=== PATIENT | female | born 1950 | race Caucasian/White ===

== ENCOUNTER 2024-10-23 13:16 | Outpatient (AMB) | payer MEDICAID, SELFPAY ==
--- NOTE | 2024-10-23 13:23 | MHC.PC.OV ---
Vital Signs 10/23/24 13:24 Height 5 ft 0.5 in Weight 191 lb 12.8 oz BMI 36.8 BP 118/72 Blood Pressure Location Lt brachial Position Sitting Respiration 20 Pulse 70 Pulse Source Pulse Oximeter Temp 98.6 F Temp Source Oral Pulse Oximetry (%) 95 Oxygen Delivery Method Room Air Intake Visit Reasons: establish care Intake Note: Patient is a new patient here to establish care. Transferring care from [facility]. Medical records have not been requested and have not been received. Quality Control Manager Required: Yes Quality Control Manager Language: Bermudian Quality Control Manager Name: Used Tablet- Abbey [id number] Accompanied by: Daughter Allergies No Known Allergies Allergy (Verified 10/23/24 13:46) Medication List - Last Reconciled 10/23/24 by KEN Pope amlodipine 5 mg PO DAILY omeprazole 40 mg PO DAILY valsartan 80 mg PO DAILY Tobacco use date assessed: 10/23/24 Fall risk assessment: No Falls in past year Last assessed Fall Risk: 10/23/24 HPI establish care HPI Details Previous PCP: In [facility] Last visit: 2 years ago Last PE: same Specialist: cardilogist, GI, orthropedics OBGYN: n/a Past medical history: htn, Medications: omeprazole 40 mg, simvastatin 20 mg, valsartan 80 mg Family HX: n/a The patient is a 74-year-old female presenting with a requirement for a physical exam associated with a company health requirement and ongoing health concerns. 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 The patient moved from the [facility] 2 years ago; she had enough medications that she has been taking and had not seek medical assistance due to insurance constraints. Past medical history reveals essential hypertension controlled with amlodipine and valsartan. The Patient also uses simvastatin 20 mg prior but currently not taking his medication regularly. There is a noted increase in shortness of breath in recent years, which worsens with exertion, such as walking more than 20 to 30 minutes. Cardiac evaluations, including an echocardiogram and EKG, were last performed two years ago in [facility], pointing to potential cardiac causes over pulmonary ones. Reports a tendency of having bradycardia in the past. The patient was diagnosed with erosive gastritis around four years ago following a cholecystectomy, which has been managed with omeprazole due to persistent heartburn. She suffers from severe osteoarthritis in her left knee, diagnosed as stage three, with notable joint discomfort and reduced mobility; however, she has declined joint replacement surgery at this time. Diclofenac topical, glucosamine and collagen. The patient has a surgical history of right hip replacement from a decade ago. She adheres to standard medical care for her conditions but lacks recent screenings of a colonoscopy or mammogram. No DEXA scan was reported. [facility] Medical History (Updated 10/23/24 @ 23:57 by KEN Pope) FH: cholecystectomy Erosive gastritis CAD (coronary artery disease) Osteoarthritis HTN (hypertension) Surgical History History of right hip replacement Social History Household Members: [facility] Alcohol intake: never Patient Tobacco Use Status: Never used Tobacco e-Cigarette/Vaping Use: Never Used service: No Current occupational status: retired Questionnaire PHQ-9 Over the last 2 weeks, how often have you been bothered by any of the following problems? 1. Little interest or pleasure in doing things: not at all 2. Feeling down, depressed, or hopeless: not at all 3. Trouble falling or staying asleep, or sleeping too much: not at all 4. Feeling tired or having little energy: nearly every day 5. Poor appetite or overeating: several days 6. Feeling bad about yourself - or that you are a failure or have let yourself or your family down: not at all 7. Trouble concentrating on things, such as reading the newspaper or watching television: not at all 8. Moving or speaking so slowly that other people could have noticed. Or the opposite - being so fidgety or restless that you have been moving around a lot more than usual: not at all 9. Thoughts that you would be better off or of hurting yourself in some way: not at all Total score: 4 Depression Screening Interpretation: Positive Depression Screening Done: Yes 93764 - PHQ-9 Billing: Yes Source: Developed by Drs. David Welch, Marybel Orozco, Stuart Black and colleagues, with an educational raulito from [employer]. Thrive Questionnaire Date Thrive assessed: 10/23/24 I am a: Patient What is your living situation today?: I have a place to live, but I am worried about losing it in the future Within the past 12 months, did the food you bought not last and you didn't have the money to get more?: Never true Within the past 12 months, did you worry whether your food would run out before you got money to buy more?: Never true Do you have trouble paying for medicines?: I choose not to answer this question Do you have trouble getting transportation to medical appointments?: Yes Do you have trouble paying your heating and electricity bill?: No Do you have trouble taking care of your child, family member or friend?: No Do you have trouble with day-to-day activities such as bathing, preparing meals, shopping, managing finances, etc.?: Yes Are you currently unemployed and looking for a job?: No Are you interested in more education?: No Please select the resources that you would like help with: Transportation and Daily support Currently or been in a relationship where the following occur: No concerns reported THRIVE Score: 2 AUDIT C Alcohol Use Questionnaire (AUDIT-C) 1. How often do you have a drink containing alcohol?: Never 3. How often do you have six or more drinks on one occasion?: Never Total Score: 0 Score Reviewed/Action Taken: No CRYSTAL-7 AMB Questionnaire CRYSTAL-7 Feeling nervous, anxious, or on edge: 1 = Several days Not being able to stop or control worryin = Not at all Worrying too much about different things: 1 = Several days Trouble relaxin = Several days Being so restless that it is hard to sit still: 0 = Not at all Becoming easily annoyed or irritable: 1 = Several days Feeling afraid as if something awful might happen: 1 = Several days Total CRYSTAL-7 score (0-4 normal; 5-9 mild; 10-14 moderate; 15-21 severe): 5 Source: Developed by Drs. David Welch, Marybel Orozco, Stuart Black and colleagues, with an educational raulito from [employer] CRYSTAL-7 Assessment Billing CRYSTAL-7 Assessment Tool: CRYSTAL-7 Assessment 41921 Review of Systems Const Details: - Cardiac: Reports shortness of breath with exertion. - GI: Reports frequent heartburn and discomfort in the gastrointestinal tract. - Musculoskeletal: Reports joint pain, particularly in the left knee with limited range of motion. - Denies any other major systemic symptoms. Denies headache(s) Eyes Denies loss of vision ENT Denies vertigo, Denies dizziness, Denies headache(s) and Denies sore throat Card Denies chest pain, Denies leg edema, Denies lightheadedness and Reports dyspnea on exertion Resp Denies cough, Denies hemoptysis, Reports dyspnea on exertion and Denies wheezing GI Denies abdominal pain, Denies melena, Denies constipation, Reports heartburn (On and off), Denies diarrhea and Denies vomiting Denies urinary frequency, Denies dysuria and Denies urinary urgency Musc Reports arthralgias (Left knee), Reports joint swelling (Left knee), Denies numbness and Denies tingling Neuro Denies Abnormal speech present, Denies behavioral changes, Denies vertigo, Denies dizziness, Denies headache(s), Denies loss of vision, Denies memory loss, Denies numbness and Denies tingling Psych Denies anxiety, Denies behavioral changes, Denies depression, Denies memory loss and Denies panic attacks Bryan/Lymph Denies easy bleeding and Denies easy bruising Aller/Immun Denies wheezing Physical exam (Primary Care) Vital Signs: Last Vital Signs Temp 98.6 F 10/23/24 13:24 Pulse 70 10/23/24 13:24 Resp 20 10/23/24 13:24 BP 118/72 10/23/24 13:24 Pulse Ox 95 10/23/24 13:24 Oxygen Delivery Method Room Air 10/23/24 13:24 BMI result Body Mass Index 36.8 Tobacco/Smoking Status: Tobacco use Status Tobacco use date assessed 10/23/24 10/23/24 13:44 Patient Tobacco Use Status Never used Tobacco 10/23/24 13:44 e-Cigarette/Vaping Use Never Used 10/23/24 13:44 PHQ-9: PHQ-9 Score PHQ-9: Total score 4 10/23/24 23:24 Depression Screening Interpretation: Positive Thrive Assessment: Date of Thrive Assessment Date Thrive assessed 10/23/24 10/23/24 13:44 Currently or been in a relationship where the following occur: No concerns reported Const Other: - Cardiovascular- Tachycardia noted, indicated by patient history. - Musculoskeletal- Noted limited range of motion in the left knee without mention of tenderness or swelling. General: healthy appearing, no acute distress, alert and awake Nutritional Appearance: well nourished Orientation/consciousness: oriented to person, oriented to place and oriented to time HENMT Ears: TM's normal bilaterally General nose exam: Normal nasal mucous membranes and turbinates present Eyes Conjunctivae: conjunctivae normal Sclerae: sclerae normal Pupils: Equal, round and reactive pupils present Neck Neck: Yes no lymphadenopathy and Yes no JVD Thyroid: Thyroid normal Carotids: no bruits Resp Effort & Inspection: normal respiratory effort and not tachypneic Auscultation: no crackles, no rales, no rhonchi and no wheezes Cardio Rate: regular rate Rhythm: regular rhythm Heart sounds: no murmurs and normal S1 and S2 GI Palpation (GI): Soft to palpation, nontender, no hepatomegaly and no splenomegaly Auscultation: normal bowel sounds General: Yes no CVA tenderness Back/Spine/Pelvis Back: no CVA tenderness Skin General skin exam: no rashes or lesions noted and dry skin Neuro General: oriented to person, oriented to place and oriented to time Cranial nerves: Yes Equal, round and reactive pupils present Speech: No Abnormal speech present Gait exam (Neuro): Normal gait present Motor exam (neuro): no tremor noted Extrem Right upper extremity: full ROM Left upper extremity: full ROM Right lower extremity: full ROM; no edema Left lower extremity: full ROM and knee Details: tenderness Location: of the medial joint line and swelling; no edema Psych Mental Status: mental status grossly normal Speech and movement: Normal speech and movement present Affect: normal affect Attitude: cooperative Thought process: Normal thought process present Coding Level of Care Code New Pt Prev Care >65yr (19583) Diagnoses Hypertension, unspecified type I10 Hypertension type: unspecified Heart burn R12 Primary osteoarthritis of left knee M17.12 Laterality: left Osteoarthritis location: knee Osteoarthritis type: primary Coronary artery disease, unspecified vessel or lesion type, unspecified whether angina present, unspecified whether [place] or transplanted heart I25.10 Associated angina: unspecified whether angina present Coronary Disease-Associated Artery/Lesion type: unspecified vessel or lesion type [place] vs. transplanted heart: unspecified whether [place] or transplanted heart Bradycardia R00.1 Additional Codes CRYSTAL-7 Assessment Billing - CRYSTAL-7 Assessment Tool: CRYSTAL-7 Assessment 18749 ([id number]) PHQ-9 - 47619 - PHQ-9 Billing: Yes ([id number]) Time Spent (min) 47 Assessment & Plan Assessment & Plan (1) HTN (hypertension): Code(s): I10 - Essential (primary) hypertension Category: Medical Qualifiers: Hypertension type: unspecified Qualified Code(s): I10 - Essential (primary) hypertension (2) Heart burn: Code(s): R12 - Heartburn Category: Medical (3) Osteoarthritis: Code(s): M19.90 - Unspecified osteoarthritis, unspecified site Category: Medical Qualifiers: Laterality: left Osteoarthritis location: knee Osteoarthritis type: primary Qualified Code(s): M17.12 - Unilateral primary osteoarthritis, left knee (4) CAD (coronary artery disease): Code(s): I25.10 - Atherosclerotic heart disease of [place] coronary artery without angina pectoris Category: Medical Qualifiers: Associated angina: unspecified whether angina present Coronary Disease-Associated Artery/Lesion type: unspecified vessel or lesion type [place] vs. transplanted heart: unspecified whether [place] or transplanted heart Qualified Code(s): I25.10 - Atherosclerotic heart disease of [place] coronary artery without angina pectoris (5) Bradycardia: Code(s): R00.1 - Bradycardia, unspecified Category: Medical Plan The plan includes ordering an echocardiogram, EKG, and BNP for cardiac evaluation given the patient's worsening shortness of breath. I will refer her to a inspector assemblies and installations for a comprehensive assessment. The patient's medication regimen of amlodipine, valsartan, and omeprazole will continue, and lab work will include a lipid panel to consider statin therapy. The patient's joint concerns will be managed conservatively due to her current election against surgery for osteoarthritis. Regular follow-ups and lifestyle modifications are encouraged to monitor symptom progression and treatment effects. Patient was informed and verbally consented to the use of an ambient scribe for clinic note documentation during this visit. Orders: Orders Complete Blood Count Auto Diff 10/23/24 I10 - Essential (primary) hypertension, M19.90 - Unspecified osteoarthritis, unspecified site, R12 - Heartburn, Z00.00 - Encounter for general adult medical examination without abnormal findings Comprehensive [place]. Panel Fast 10/23/24 I10 - Essential (primary) hypertension, M19.90 - Unspecified osteoarthritis, unspecified site, R12 - Heartburn, Z00.00 - Encounter for general adult medical examination without abnormal findings Lipid Panel 10/23/24 I10 - Essential (primary) hypertension, M19.90 - Unspecified osteoarthritis, unspecified site, R12 - Heartburn, Z00.00 - Encounter for general adult medical examination without abnormal findings ECG 12 lead EKG 10/23/24 I10 - Essential (primary) hypertension, I25.10 - Atherosclerotic heart disease of [place] coronary artery without angina pectoris B Type Natriuretic Peptide 10/23/24 I10 - Essential (primary) hypertension, M19.90 - Unspecified osteoarthritis, unspecified site, R12 - Heartburn, Z00.00 - Encounter for general adult medical examination without abnormal findings Vitamin D 25-OH Total 10/23/24 I10 - Essential (primary) hypertension, M19.90 - Unspecified osteoarthritis, unspecified site, R12 - Heartburn, Z00.00 - Encounter for general adult medical examination without abnormal findings Glucose Fasting 10/23/24 I10 - Essential (primary) hypertension, M19.90 - Unspecified osteoarthritis, unspecified site, R12 - Heartburn, Z00.00 - Encounter for general adult medical examination without abnormal findings UA CC w/rflx Micro + Cult 10/23/24 I10 - Essential (primary) hypertension, M19.90 - Unspecified osteoarthritis, unspecified site, R12 - Heartburn, Z00.00 - Encounter for general adult medical examination without abnormal findings TSH reflex Free T4 10/23/24 I10 - Essential (primary) hypertension, M19.90 - Unspecified osteoarthritis, unspecified site, R12 - Heartburn, Z00.00 - Encounter for general adult medical examination without abnormal findings CA echo transthoracic complete 10/23/24 I10 - Essential (primary) hypertension, I25.10 - Atherosclerotic heart disease of [place] coronary artery without angina pectoris, R00.1 - Bradycardia, unspecified Referrals Cardiology Referral I10 - Essential (primary) hypertension, I25.10 - Atherosclerotic heart disease of [place] coronary artery without angina pectoris, R00.1 - Bradycardia, unspecified Medications: New amlodipine 5 mg PO DAILY 90 tabs 0RF I10 - Essential (primary) hypertension omeprazole 40 mg PO DAILY 90 caps 3RF amlodipine 5 mg PO DAILY 90 tabs 3RF I10 - Essential (primary) hypertension simvastatin 20 mg PO BEDTIME 30 tabs 2RF I25.10 - Atherosclerotic heart disease of [place] coronary artery without angina pectoris valsartan 80 mg PO DAILY 90 tabs 3RF I10 - Essential (primary) hypertension valsartan 80 mg PO DAILY 90 tabs 3RF I10 - Essential (primary) hypertension simvastatin 20 mg PO BEDTIME 30 tabs 2RF I25.10 - Atherosclerotic heart disease of [place] coronary artery without angina pectoris Patient Instructions: - Continue taking amlodipine, valsartan, and omeprazole as prescribed. - Schedule lab tests for echocardiogram, EKG, and a BNP test. - Refrain from any strenuous activities that may exacerbate joint pain. - Follow the current medication regimen for hypertension and gastritis. - Expect a call for an appointment from the inspector assemblies and installations for specialized evaluation. - Return for a follow-up visit in three months or sooner if experiencing worsened symptoms. - Bring any recent test results to the next appointment.
[2024-10-23 13:24] VITALS: BP 118/72; PULSE 70; RESP 20; TEMP 37; O2SAT 95; BMI 36.8
--- OUTSIDE RECORDS SUMMARY | 2024-10-23 15:44 | XMS_ITS | Clinical Summary ---
Author Organization [facility] Address [address] [place] [address] Care Team Providers Care Trade Marker Name Role Phone Unavailable Primary Care Provider Unavailabl e Source Comments PLEASE NOTE, if this patient is a minor, it may be UNLAWFUL to discuss sensitive information that is contained in these records (such as FAMILY PLANNING, MENTAL HEALTH or SUBSTANCE ABUSE) with the minor patient's parent or other person without the patient's specific authorization.[facility] Social History Tobacco Use Types Packs/Day Years Used Date Smoking Tobacco: Never Assessed Social Connections Answer Date Recorded Connectedness 0 03/15/2024 Financial Resource Strain Answer Date R ecorded Financial Resource Strain 0 2023 Stress Answer Date Recorded Stress 0 01/17/2024 Physical Activity Answer Date Recorded Physical Activity 0 01/17/2024 Food Insecurity Answer Date Recorded Food 0 03/29/2024 Transportation Needs Answer Date Record ed Transportation 0 01/17/2024 Housing Stability Answer Date Recorded Housing 0 01/17/2024 Safety and Environment Answer Date Mauricio rded Safety 0 01/17/2024 Utilities Answer Date Recorded Utilities 0 01/17/2024 Employment Answer Date Recorded Stress 0 03/15/2024 Comments Unknown Sex and Gender Information Value Date Recorded Sex Assigned at Not on file Legal Sex Female 7:03 AM PDT Gender Identity Not on file Sexual Orientation Not on file Plan of Treatment Health Maintenance Due Date Last Done Comments Hepatitis C Screening 1950 Tobacco Screening 1950 Hypertension Screening (#1) 1966 Imm-DTaP/Tdap/Td (1 - Tdap) 1967 Imm-Pneumococcal 65+ (1 of 1 - PCV) 1998 Imm-Zoster, Recombinant (1 of 2) 1998 Bone Density Screening 2013 Falls Prevention 2013 [id number] ( - season) 2024 Imm-Influenza (#1) 2024 Alcohol and Drug Screen 07/04/2024 Depression Annual Screen 07/04/2024 Insurance [place] MEDICAID
== END 2024-10-23 14:55 | disposition home or self-care (01) ==
LOC: HO.HMCH 13:16
DX: I10 Essential (primary) hypertension (principal); R12 Heartburn; M17.12 Unilateral primary osteoarthritis, left knee; I25.10 Atherosclerotic heart disease of native coronary artery without angina pectoris; R00.1 Bradycardia, unspecified

== ENCOUNTER → 2024-10-23 13:16 | Outpatient (BNVA) | payer MEDICAID, SELFPAY | DX: I10 Essential (primary) hypertension (principal); R12 Heartburn; M17.12 Unilateral primary osteoarthritis, left knee; I25.10 Atherosclerotic heart disease of native coronary artery without angina pectoris; R00.1 Bradycardia, unspecified; Z79.899 Other long term (current) drug therapy | CPT/HCPCS: 96127; 99202 ==

== ENCOUNTER → 2024-10-26 10:28 | Outpatient (REF) | payer MEDICAID, SELFPAY ==
[2024-10-26 10:48] LABS: MANUAL DIFF FLAG NO
--- OUTSIDE RECORDS SUMMARY | 2024-10-26 11:05 | XMS_ITS | Clinical Summary ---
Author Organization [facility] Address [address] [place] [address] Care Team Providers Care Assistant Sales Director Name Role Phone Unavailable Primary Care Provider [...] Bone Density Screening 2013 Falls Prevention 2013 [id number]-GERUR-39 ( - season) 2024 Imm-Influenza (#1) 2024 Alcohol and Drug Screen 07/04/2024 Depression Annual Screen 07/04/2024 Insurance [place] MEDICAID
--- NOTE | 2024-10-26 11:06 | ECG_ITS ---
Test Reason : HTN Blood Pressure : */* mmHG Vent. Rate : 57 BPM Atrial Rate : 57 BPM P-R Int : 142 ms QRS Dur : 90 ms QT Int : 460 ms P-R-T Axes : 64 -49 75 degrees QTcB Int : 447 ms Sinus bradycardia RSR' or QR pattern in V1 suggests right ventricular conduction delay Left anterior fascicular block Nonspecific T wave abnormality Abnormal ECG No previous ECGs available Referred By: Armond Pritchett Electronically Signed By: KOJO SUNG
[2024-10-26 11:32] LABS: Basophils Absolute Auto 0.1 X10*3/uL (0.0-0.2); Basophils Percent Auto 0.8 % (0-2); Eosinophils Absolute Auto 0.1 X10*3/uL (0.0-0.4); Hematocrit 43.1 % (37.0-47.0); Hemoglobin 14.6 g/dl (12.0-16.0); Imm Gran Abs Auto 0.02 X10*3/uL (0.00-0.03); Imm Gran Pct Auto 0.3 % (0.0-0.4); Lymphocytes Absolute Auto 2.5 X10*3/uL (1.2-4.9); Mean Corpuscular HGB Conc 33.9 g/dl (31.0-35.0); Mean Corpuscular Hemoglobin 29.1 pg (27.0-33.0); Mean Platelet Volume 10.3 fL (9.4-12.3); Monocytes Absolute Auto 0.6 X10*3/uL (0.1-1.2); Neutrophils Absolute Auto 4.6 x10*3/uL (2.0-8.3); Neutrophils Percent Auto 57.9 % (45-73); Platelet Count 291 X10*3/uL (160-400); Red Blood Count 5.01 X10*6/uL (4.20-5.50); Red Cell Distribution Width 13.2 % (11.0-16.0); White Blood Count 7.9 X10*3/uL (4.8-10.8)
[2024-10-26 11:47] LABS: B Type Natriuretic Peptide 62 pg/mL (<100)
[2024-10-26 12:01] LABS: Appearance Urine Cloudy; Color Urine Yellow; Glucose Urine UA Negative (Negative); Leukocyte Esterase Urine Moderate (2+) (Negative); Nitrite Urine Negative (Negative); Specific Gravity - Urine >= 1.030 (1.005-1.025); UMIC TRIGGER UACC YES; Urine Blood Trace (Negative); Urine Ketones Negative (Negative); Urine Protein 30 (1+) mg/dL (Neg-Trace)
[2024-10-26 12:13] LABS: Alanine Aminotransferase 20 U/L (0-31); Albumin Level 4.1 g/dL (3.5-5.0); Alkaline Phosphatase 84 U/L (39-117); Anion Gap 10 (12-20); Aspartate Amino Transferase 24 U/L (5-31); Bilirubin Total 0.6 mg/dL (0.0-1.0); Blood Urea Nitrogen 21 mg/dL (9-16); Calcium 9.3 mg/dL (8.4-10.2); Carbon Dioxide 27 mmol/L (22-29); Chloride 107 mmol/L (96-108); Cholesterol 245 mg/dL (<200); Estimated Glomerular Filt Rate > 60; Glucose Fasting 97 mg/dL (60-99); HDL Cholesterol 76 mg/dL (>40); LDL Cholesterol Calculated 157 mg/dL (<100); Potassium 4.3 mmol/L (3.3-5.1); Sodium 140 mmol/L (135-145); Total Protein 7.1 g/dL (6.5-8.0); Triglycerides 63 mg/dL (<150)
[2024-10-26 12:23] LABS: TSH reflex Free T4 0.42 uIU/mL (0.32-4.0); Vitamin D 25-OH Total 23.8 ng/mL (>30)
[2024-10-26 13:26] LABS: Bacteria Urine 2+ (None Seen); Hyaline Casts Urine 0-2 /LPF (0-2); RBC Urine 0-2 /HPF (0-2); Squamous Epithelial Cell Urine >20 /HPF (0-2); UACC Culture Trigger YES; WBC Clumps Urine Present; WBC Urine >50 /HPF (0-5)
== END ==
LOC: HO.CARD 10:28
DX: I25.10 Atherosclerotic heart disease of native coronary artery without angina pectoris (principal); I10 Essential (primary) hypertension; R12 Heartburn; M19.90 Unspecified osteoarthritis, unspecified site; Z00.00 Encounter for general adult medical examination without abnormal findings
CPT/HCPCS: 36415; 80053; 80061; 81001; 81003; 82306; 83880; 84443; 85025; 87086; 93005

== ENCOUNTER → 2024-10-26 11:06 | Outpatient (BNV) | payer MEDICAID, SELFPAY | PROVIDERS: Visit Provider Internal Medicine | DX: R00.1 Bradycardia, unspecified (principal); I44.4 Left anterior fascicular block | CPT/HCPCS: 93010 ==

== ENCOUNTER → 2024-11-29 15:00 | Outpatient (REF) | payer MEDICAID, SELFPAY ==
--- OUTSIDE RECORDS SUMMARY | 2024-11-29 15:03 | XMS_ITS | Clinical Summary ---
Author Organization [facility] Address [address] [place] [address] Care Team Providers Care Administrative Volunteer Name Role Phone Unavailable Primary Care Provider [...] Bone Density Screening 2013 Falls Prevention 2013 [id number]-40 ( - season) 2024 Imm-Influenza (#1) 2024 Alcohol and Drug Screen 07/04/2024 Depression Annual Screen 07/04/2024 Insurance [place] MEDICAID
--- NOTE | 2024-11-29 15:05 | CA_ITS ---
Transthoracic Echocardiogram Patient (Last, First, Middle): Lizbeth Morrow, Gender: Female Date of : 1950 Age: 74 Procedure Date: 11/29/2024 Procedure Type: Transthoracic Echocardiogram Location: OP Height: 154.94 cm Weight: 79.83 kg BSA: 1.79 m2 Heart Rate: bpm BP: 126 / 70 mmHg Sql Bi Developer: SNEHA Referring MD: Armond CORCORAN-C Apprentice Technician: Sreekanth Lutz MD Symptoms: I25.10 - Atherosclerotic heart disease of solomon coronary artery without... Study Quality: Fair ECG Rhythm: Sinus Conclusions: - 1. Normal LV ejection fraction of 65-70% with impaired relaxation filling pattern 2. Normal cardiac valvular Dopplers 3. Normal RV systolic pressure 4. No gross pericardial effusion Findings Left Ventricle Normal left ventricular size, thickness, and systolic function. The visually estimated ejection fraction is between 65-70%. Spectral Doppler is indicative of an impaired relaxation filling pattern. E/E prime ratio is between 8 and 15 consistent with indeterminate filling pressures. Right Ventricle Normal right ventricular cavity size and systolic function. Atria The left atrium is normal in size. There is no evidence of interatrial shunt. The right atrium was not well visualized. Aortic Valve Normal aortic valve structure and function. There is no aortic valve stenosis. There is no aortic valve regurgitation. Mitral Valve Normal mitral valve structure and function. There is trace mitral valve regurgitation. There is no mitral valve stenosis. Pulmonic Valve The pulmonic valve was not well visualized. Tricuspid Valve Likely normal tricuspid valve structure and function. There is mild tricuspid valve regurgitation. The right ventricular systolic pressure is normal. The right ventricular systolic pressure is 35 mmHg. Normal right atrial pressure. There is no evidence of pulmonary hypertension. Great Vessels All visible segments of the aorta are normal in size. The pulmonary artery was not well visualized. Venous The inferior vena cava is normal in size and collapses greater than 50% with inspiration. Pericardium/Pleural There is no evidence of pericardial effusion. Prior Study Comparison No prior study available for comparison. Measurements 2D Linear Measurements IVSd: 0.78 0.6-0.9/0.6-1.0 cm LVIDd: 4.92 3.9-5.3/4.2-5.9 cm LVIDd Index: 2.75 2.4-3.2/2.2-3.1 cm/m2 LVIDs: 2.65 2.0-3.6 cm LVPWd: 0.82 0.7-1.1 cm LA Diam: 4.60 2.7-3.8/3.0-4.0 cm LAIDs Index: 2.57 1.5-2.3 cm/m2 LV Mass: 164.13 67-162/88-224 g LV Mass Index: 91.69 43-95/49-115 g/m2 LVOT Diam: 1.90 3.0+(-)1.3 cm 2D Systolic Function EF 4C: 62.40 >55% EF 2C: 68.20 >55% EF BiP: 66.10 >55% Mitral Valve MV Pk E: 0.66 MV PK A: 0.74 MV Decel Time: 236.00 E/A: 0.90 E'Lateral: 4.79 E'Medial: 4.03 E/E' Med: 16.40 E/E' Lat: 13.80 PHT: 69.00 MVA PHT: 3.19 Decel [place]: 2.79 Aortic Valve AoV Pk Pro: 1.84 AoV Mn Pro: 1.30 AoV VTI: 0.41 AoV Pk Grad: 14.00 Aov Mn Grad: 7.00 PRESLEY Cont.VTI: 1.64 LVOT LVOT Pk Pro: 1.19 LVOT Mn Pro: 0.75 LVOT VTI: 0.24 LVOT Pk Grad: 6.00 LVOT Mn Grad: 3.00 LVOT Diam: 1.90 LVOT Area: 2.84 Diastolic Function MV Pk E: 0.66 MV Pk A: 0.74 E/A: 0.90 E'Medial: 4.03 E/E' Med: 16.40 E' Laterial: 4.79 E/E' Lat: 13.80 Right Ventricle TAPSE (mm): 27.20 TVS' Pro: 18.00 Tricuspid Valve TR Pk Pro: 2.84 TR Pk Grad: 32.00 RA Press: 3.00 RVSP: 35.00 Great Vessels Aorta Sinus of Valsalva: 2.62 2.0-3.[address] [place]: 2.31 1.7-3.4 cm Ao Asc: 3.20 2.1-3.4 cm Ao Arch: 2.80 Updated in Other Vendor System with Status of Final Sreekanth Lutz MD electronically signed on 11/29/2024 4:29:46 PM with status of Final
== END ==
LOC: HO.CARD 15:00
DX: I25.10 Atherosclerotic heart disease of native coronary artery without angina pectoris (principal); I10 Essential (primary) hypertension; R00.1 Bradycardia, unspecified
CPT/HCPCS: 93306

== ENCOUNTER → 2024-11-29 15:05 | Outpatient (BNV) | payer MEDICAID, SELFPAY | PROVIDERS: Visit Provider Internal Medicine Cardiovascular Disease | DX: I51.89 Other ill-defined heart diseases (principal); I36.1 Nonrheumatic tricuspid (valve) insufficiency | CPT/HCPCS: 93306 ==

== ENCOUNTER 2025-01-22 15:52 | Outpatient (AMB) | payer MEDICAID, SELFPAY ==
--- NOTE | 2025-01-22 15:56 | A.OFFPC_ITS ---
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 Required: No Accompanied by: Nephew or Niece Allergies No Known Allergies Allergy (Verified 01/22/25 16:30) Medication List - Last Reconciled 01/22/25 by KEN Pope amlodipine 5 mg PO DAILY omeprazole 40 mg PO DAILY simvastatin 20 mg PO BEDTIME valsartan 80 mg PO DAILY Tobacco use date assessed: 01/22/25 Fall risk assessment: No Falls in past year Last assessed Fall Risk: 01/22/25 Dental Screening Dental Screen Date: 01/22/25 HPI CAD/htn HPI Details The patient is a 74-year-old female presenting for follow up appointment for chronic conditions Patient reports that she has has been having lower back pain that radiates down her left leg Reports that the patient started a week ago, radiating down the leg and worsening with movement, but not with palpation. The patient has a history of hyperlipidemia, with elevated LDL cholesterol noted previously. A follow-up cholesterol test is planned. Vitamin D deficiency is also present, likely due to insufficient sunlight exposure, and supplementation is advised. left side of lower back with radiating down back. The pain started from last week. positive leg raise on the left side negative pain to the area witih palpation She denies chest pain, SOB, heart palpitation and dizziness. Denies abdominal pain/change in bowel habits. No urinary symptoms PFSH Medical History FH: cholecystectomy Erosive gastritis CAD (coronary artery disease) Osteoarthritis HTN (hypertension) Surgical History History of right hip replacement Social History Household Members: Family [facility]: [facility] Alcohol intake: never Patient Tobacco Use Status: Never used Tobacco e-Cigarette/Vaping Use: Never Used service: No Current occupational status: retired Questionnaire Thrive Questionnaire Date Thrive assessed: 01/22/25 I am a: Patient What is your living situation today?: I have a place to live, but I am worried about losing it in the future Within the past 12 months, did the food you bought not last and you didn't have the money to get more?: Never true Within the past 12 months, did you worry whether your food would run out before you got money to buy more?: Never true Do you have trouble paying for medicines?: I choose not to answer this question Do you have trouble getting transportation to medical appointments?: Yes Do you have trouble paying your heating and electricity bill?: No Do you have trouble taking care of your child, family member or friend?: No Do you have trouble with day-to-day activities such as bathing, preparing meals, shopping, managing finances, etc.?: Yes Are you currently unemployed and looking for a job?: No Are you interested in more education?: No Currently or been in a relationship where the following occur: No concerns reported THRIVE Score: 2 CRYSTAL-7 AMB Questionnaire CRYSTAL-7 Date CRYSTAL - 7 assessed: 01/22/25 Source: Developed by Drs. David Welch, Marybel Orozco, Stuart Black and colleagues, with an educational raulito from [employer]. Review of Systems Const Denies body aches, Denies chills, Denies fever(s), Denies headache(s) and Denies poor appetite Eyes Reports no additional complaints ENT Reports Normal hearing present, Denies dysphagia, Denies dizziness, Denies headache(s) and Denies odynophagia Card Denies chest pain, Denies syncope, Denies edema, Denies irregular heart rhythm, Denies lightheadedness and Denies dyspnea Resp Denies cough and Denies dyspnea GI Denies abdominal pain, Denies constipation, Denies dysphagia, Denies diarrhea, Denies nausea, Denies odynophagia and Denies vomiting Reports no additional complaints Musc Reports back pain, Reports arthralgias (left knee), Denies joint swelling and Reports radiating pain into limb (left leg) Skin/Breast Reports system reviewed and no additional complaints, except as documented Neuro Reports Normal hearing present, Denies dizziness, Denies syncope and Denies headache(s) Psych Reports no additional complaints Physical exam (Primary Care) Vital Signs: Last Vital Signs Pulse 67 01/22/25 15:57 BP 116/76 01/22/25 15:57 Pulse Ox 96 01/22/25 15:57 Oxygen Delivery Method Room Air 01/22/25 15:57 BMI result Body Mass Index 36.8 Tobacco/Smoking Status: Tobacco use Status Tobacco use date assessed 01/22/25 01/22/25 16:04 Patient Tobacco Use Status Never used Tobacco 01/22/25 16:04 e-Cigarette/Vaping Use Never Used 01/22/25 16:04 Thrive Assessment: Date of Thrive Assessment Date Thrive assessed 01/22/25 01/22/25 16:04 Currently or been in a relationship where the following occur: No concerns reported Const General: cooperative, healthy appearing, comfortable and no acute distress Orientation/consciousness: patient oriented x3 HENMT Head: Yes normocephalic Ears: hearing grossly normal bilaterally General nose exam: Normal external nose present Eyes General: appearance normal, both eyes and all related structures Conjunctivae: conjunctivae normal Neck Neck: Yes full ROM and Yes no lymphadenopathy Resp Effort & Inspection: normal respiratory effort Auscultation: clear to auscultation bilaterally, no crackles, no rales, no rhonchi and no wheezes Cardio Rate: regular rate Rhythm: regular rhythm General: Yes no CVA tenderness Back/Spine/Pelvis Back: no CVA tenderness Thoracic/Lumbar Spine: No thoracic spinal tenderness, No lumbar spinal tenderness and straight leg raise positive Skin General skin exam: no rashes or lesions noted Neuro General: patient oriented x3 Cranial nerves: Yes Normal hearing present Extrem General: Yes normal to inspection, Yes full ROM and No edema Right lower extremity: ROM limited and no edema Left lower extremity: knee Details: no tenderness and no swelling; abnormal ROM and no edema Psych Affect: normal affect Attitude: cooperative Insight: Good insight present (Psych) Judgement: Good judgement present (Psych) Results Reviewed Results Reviewed: Laboratory Tests 10/26/24 10/26/24 10:47 11:24 WBC 7.9 RBC 5.01 Hgb 14.6 Hct 43.1 MCV 86.0 MCH 29.1 MCHC 33.9 RDW 13.2 Plt Count 291 MPV 10.3 Immature Gran % (Auto) 0.3 Neut % (Auto) 57.9 Lymph % (Auto) 32.0 [place] % (Auto) 8.0 Eos % (Auto) 1.0 Baso % (Auto) 0.8 Lymph # (Auto) 2.5 [place] # (Auto) 0.6 Eos # (Auto) 0.1 Sodium 140 Potassium 4.3 Chloride 107 Carbon Dioxide 27 Anion Gap 10 L BUN 21 H Creatinine 0.61 Estimated GFR > 60 Fasting Glucose 97 Calcium 9.3 Total Bilirubin 0.6 AST 24 ALT 20 Alkaline Phosphatase 84 B-Natriuretic Peptide 62 Total Protein 7.1 Albumin 4.1 Triglycerides 63 Cholesterol 245 H LDL Cholesterol, Calc 157 H HDL Cholesterol 76 25-OH Vitamin D Total 23.8 L TSH 0.42 Urine Color Yellow Urine Appearance Cloudy Ur Specific [place] >= 1.030 H Urine Protein 30 (1+) H Urine Glucose (UA) Negative Urine Ketones Negative Urine Blood Trace Urine Nitrite Negative Ur Leukocyte Esterase Moderate (2+) H Urine RBC 0-2 Urine WBC >50 H Urine WBC Clumps Present Ur Squamous Epith Cells >20 Urine Bacteria 2+ Hyaline Casts 0-2 Coding Level of Care Code Est Pt Level 4 (22360) Diagnoses Hypertension, unspecified type I10 Hypertension type: unspecified Heart burn R12 Primary osteoarthritis of left knee M17.12 Osteoarthritis location: knee Osteoarthritis type: primary Laterality: left Coronary artery disease, unspecified vessel or lesion type, unspecified whether angina present, unspecified whether [place] or transplanted heart I25.10 Coronary Disease-Associated Artery/Lesion type: unspecified vessel or lesion type [place] vs. transplanted heart: unspecified whether [place] or transplanted heart Associated angina: unspecified whether angina present Bradycardia R00.1 Acute left-sided low back pain with left-sided sciatica M54.42 Chronicity: acute Back pain laterality: left Sciatica presence: with sciatica Sciatica laterality: sciatica of left side Pure hypercholesterolemia E78.00 Hyperlipidemia type: pure hypercholesterolemia Vitamin D deficiency E55.9 Time Spent (min) 41 Assessment & Plan Assessment & Plan (1) HTN (hypertension): Code(s): I10 - Essential (primary) hypertension Category: Medical Qualifiers: Hypertension type: unspecified Qualified Code(s): I10 - Essential (primary) hypertension Plan: Patient blood pressure is 116/76. Reinforced low-salt diet. Continue amlodipine 5 mg daily, valsartan 80 mg daily (2) Heart burn: Code(s): R12 - Heartburn Category: Medical Plan: Reinforced dietary restrictions Continue omeprazole 40 mg daily (3) Osteoarthritis: Code(s): M19.90 - Unspecified osteoarthritis, unspecified site Category: Medical Qualifiers: Osteoarthritis location: knee Osteoarthritis type: primary Laterality: left Qualified Code(s): M17.12 - Unilateral primary osteoarthritis, left knee Plan: Patient has a history of left knee arthritis that was recommended to be surgically repaired. The patient had declined surgery and has been using conservative measures a topical cream. The patient in office today with a new pain to her back and posterior left leg and reports that her knees not as bad today. We will continue to monitor (4) CAD (coronary artery disease): Code(s): I25.10 - Atherosclerotic heart disease of [place] coronary artery without angina pectoris Category: Medical Qualifiers: Coronary Disease-Associated Artery/Lesion type: unspecified vessel or lesion type [place] vs. transplanted heart: unspecified whether [place] or transplanted heart Associated angina: unspecified whether angina present Qualified Code(s): I25.10 - Atherosclerotic heart disease of [place] coronary artery without angina pectoris Plan: Patient has a history of CAD that was diagnosed in [facility]. An EKG was done that showed sinus bradycardia with left anterior fascicular block, nonspecific T-wave abnormalities. The patient had an echo done that showed normal left ventricle function an EF of 65-70%. Patient is stable in his not having any anginal symptoms. (5) Bradycardia: Code(s): R00.1 - Bradycardia, unspecified Category: Medical Plan: Patient reports a history of sinus bradycardia. This confirmed on EKG. She is asymptomatic with no chest pain. Though she has some sob with exertion that she has been dealing with. Her lungs are clear and she has no other respiratory symptoms. (6) Lower back pain: Code(s): M54.50 - Low back pain, unspecified Category: Medical Qualifiers: Chronicity: acute Back pain laterality: left Sciatica presence: with sciatica Sciatica laterality: sciatica of left side Qualified Code(s): M54.42 - Lumbago with sciatica, left side Plan: Patient comes in today with complaints of severe lower back pain mostly on the left side that radiates down posterior leg. +straight leg test. The patient was started on ibuprofen 800mg q8 hrs with a maximum of only 20 tabs. 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 Discussed about only taking the mediation when the pain is severe. The patient was also given a prednisone tapered to help with the inflammation. (7) HLD (hyperlipidemia): Code(s): E78.5 - Hyperlipidemia, unspecified Category: Medical Qualifiers: Hyperlipidemia type: pure hypercholesterolemia Qualified Code(s): E78.00 - Pure hypercholesterolemia, unspecified Plan: Total cholesterol 245, LDL 157, HDL 76 Reinforced low-cholesterol diet Continue simvastatin 20 mg at bedtime. The patient was off this medication for sometimes so I will hold off on making any changes and have the patient repeat lipid panel in 3 months (8) Vitamin D deficiency: Code(s): E55.9 - Vitamin D deficiency, unspecified Category: Medical Plan: Vitamin-D 23.8 below the normal level of greater than 30. Cholecalciferol 25 mcg daily ordered Orders: Orders Comprehensive Boyd. Panel Fast Today E78.5 - Hyperlipidemia, unspecified, I10 - Essential (primary) hypertension, I25.10 - Atherosclerotic heart disease of [place] coronary artery without angina pectoris Complete Blood Count Auto Diff Today E78.5 - Hyperlipidemia, unspecified, I10 - Essential (primary) hypertension, I25.10 - Atherosclerotic heart disease of [place] coronary artery without angina pectoris Lipid Panel Today E78.5 - Hyperlipidemia, unspecified, I10 - Essential (primary) hypertension, I25.10 - Atherosclerotic heart disease of [place] coronary artery without angina pectoris Medications: New ibuprofen 800 mg PO Q8H PRN 30 tabs 0RF pain prednisone see taper instructions take 4 tabs x 2 days, then 3 tabs x2, then 2 tabs x 2 days, then 1 tab x2 days =20 for 8 days. 10 mg PO DIRECTED 20 tabs 0RF cholecalciferol (vitamin D3) 25 mcg PO DAILY 90 caps 3RF ibuprofen 800 mg PO Q8H PRN 20 tabs 0RF pain Refilled valsartan 80 mg PO DAILY 90 tabs 3RF I10 - Essential (primary) hypertension amlodipine 5 mg PO DAILY 90 tabs 3RF I10 - Essential (primary) hypertension omeprazole 40 mg PO DAILY 90 caps 3RF simvastatin 20 mg PO BEDTIME 30 tabs 2RF I25.10 - Atherosclerotic heart disease of [place] coronary artery without angina pectoris
[2025-01-22 15:57] VITALS: BP 116/76; PULSE 67; RESP 16; O2SAT 96; BMI 36.8
--- OUTSIDE RECORDS SUMMARY | 2025-01-22 16:35 | XMS_ITS | Clinical Summary ---
Author Organization [facility] Address [address] [place] [address] Care Team Providers Care Recreational Counselor Name Role Phone Unavailable Primary Care Provider [...] 1966 Imm-DTaP/Tdap/Td (1 - Tdap) 1967 Imm-Pneumococcal 50+ (1 of 1 - PCV) 1998 Imm-Zoster, Recombinant (1 of 2) 1998 Bone Density Screening 2013 Falls Prevention 2013 Imm-RSV (adult) (1 - 1-dose 75+ series) 2023 Ivy-[id number] (1 - 2024- season) 2024 Alcohol and Drug Screen 07/04/2024 Depression Annual Screen 07/04/2024 Imm-Influenza (#1) 2025 Insurance [place] MEDICAID
== END 2025-01-22 16:54 | disposition home or self-care (01) ==
LOC: HO.HMCH 15:53
DX: I10 Essential (primary) hypertension (principal); R12 Heartburn; M17.12 Unilateral primary osteoarthritis, left knee; I25.10 Atherosclerotic heart disease of native coronary artery without angina pectoris; R00.1 Bradycardia, unspecified; M54.42 Lumbago with sciatica, left side; E78.00 Pure hypercholesterolemia, unspecified; E55.9 Vitamin D deficiency, unspecified

== ENCOUNTER → 2025-01-22 15:52 | Outpatient (BNVA) | payer MEDICAID, SELFPAY | DX: I10 Essential (primary) hypertension (principal); I25.10 Atherosclerotic heart disease of native coronary artery without angina pectoris; E78.5 Hyperlipidemia, unspecified; E55.9 Vitamin D deficiency, unspecified; R12 Heartburn; M17.12 Unilateral primary osteoarthritis, left knee; M54.42 Lumbago with sciatica, left side; R00.1 Bradycardia, unspecified; E78.00 Pure hypercholesterolemia, unspecified | CPT/HCPCS: 99212 ==

== ENCOUNTER 2025-07-01 13:38 | Outpatient (AMB) | payer MEDICAID, SELFPAY ==
--- NOTE | 2025-07-01 13:55 | A.OFFVIS_ITS ---
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 Inside Finisher Required: Yes Inside Finisher Services: Inside Finisher Offered & Declined Inside Finisher Name: daughter Accompanied by: Daughter Allergies No Known Allergies Allergy (Verified 01/22/25 16:30) Medication List - Last Reconciled 07/01/25 by TONO Zafar amlodipine 5 mg PO DAILY cholecalciferol (vitamin D3) 25 mcg PO DAILY ibuprofen 800 mg PO Q8H PRN omeprazole 40 mg PO DAILY prednisone 10 mg PO DIRECTED simvastatin 20 mg PO BEDTIME valsartan 80 mg PO DAILY HPI Comments Details: History of Present Illness The patient is a 74-year-old female presenting for a cardiology consultation for bradycardia and shortness of breath on exertion. She reports shortness of breath with activity, such as walking, which began approximately one year ago and has worsened recently, particularly with faster walking. She denies orthopnea, chest pain or leg swelling. The symptoms may have started after discontinuing hydrochlorothiazide upon her arrival from [facility] two years ago. The patient reports her typical resting pulse is 55-60 bpm. She denies palpitations, dizziness, syncope. Her medical history is significant for hypertension, which is well-controlled on amlodipine and valsartan, and hyperlipidemia, for which she takes simvastatin. She has no history of diabetes, heart problems, asthma, emphysema, or bronchitis. She does not smoke or consume alcohol. Her exercise consists of walking about 4,000 steps daily. There is no family history of heart problems. Daughter is present and assist with translation. Past Cardiac testing - Echocardiogram (11/29/2024): Ejection fraction 65-70%, impaired relaxation, and normal valve Dopplers. - EKG (10/26/2024): Sinus bradycardia with a rate of 57, incomplete right bundle branch block, and left anterior fascicular block. - EKG (today): Sinus rhythm with a rate of 67 premature atrial contractions (PACs), left anterior fascicular block, and cannot exclude prior anterolateral infarct. Results - Labs (10/26/2024): - Hematocrit: 43.1 - Creatinine: 0.61 - TSH: 0.42 PFSH Medical History FH: cholecystectomy Erosive gastritis CAD (coronary artery disease) Osteoarthritis HTN (hypertension) Surgical History History of right hip replacement Social History [facility]: [facility] Alcohol intake: never Patient Tobacco Use Status: Never used Tobacco e-Cigarette/Vaping Use: Never Used service: No Current occupational status: retired Review of Systems Const All systems reviewed & are unremarkable except as noted in HPI and below Denies chills, Denies fatigue, Denies fever(s), Denies frequent falls, Denies weakness, Denies weight gain and Denies weight loss ENT Denies dizziness Card Denies chest pain, Denies leg edema, Denies lightheadedness, Denies palpitations, Reports dyspnea, Reports dyspnea on exertion and Reports orthopnea Resp Denies cough, Reports dyspnea and Reports dyspnea on exertion GI Denies bloating and Denies change in bowel habits Musc Denies muscle weakness, Denies numbness and Denies tingling Neuro Denies dizziness, Denies frequent falls, Denies numbness, Denies tingling and Denies weakness Endo Denies fatigue and Denies palpitations Physical Exam Vital Signs: Last Vital Signs Pulse 67 07/01/25 13:59 BP 122/80 07/01/25 13:59 BMI result Body Mass Index 37.4 Const General: cooperative, healthy appearing, comfortable and no acute distress Orientation/consciousness: patient oriented x3 Neck Neck: Yes normal visual inspection Resp Effort & Inspection: normal respiratory effort Auscultation: clear to auscultation bilaterally, no rales, no rhonchi and no wheezes Cardio Rate: regular rate Rhythm: regular rhythm Heart sounds: S1 normal heart sound present, S2 normal heart sound present, no gallops, no murmurs and no rubs Neuro General: patient oriented x3 Extrem General: Yes normal to inspection and No no pedal edema Psych Appearance: grossly normal Mental Status: mental status grossly normal Speech and movement: Normal speech and movement present Office Procedures EKG Details: Today, read by me, sinus rhythm with PACs, left anterior fascicular block, anterior infarct can not be excluded, rate 67, QTC 416 milliseconds [id number], Complete Assessment & Plan Assessment & Plan (1) Shortness of breath on exertion: Code(s): R06.02 - Shortness of breath Category: Medical Plan: Newer in last year. Will check Exercise nuclear stress test to evaluate for ischemia. (2) Bradycardia: Code(s): R00.1 - Bradycardia, unspecified Category: Medical Plan: EKG today SR, PACs rate 67. Checking holter. (3) HTN (hypertension): Code(s): I10 - Essential (primary) hypertension Category: Medical Qualifiers: Hypertension type: unspecified Qualified Code(s): I10 - Essential (primary) hypertension Plan: BP goal < 130/80. Good at present. No Med changes made. (4) HLD (hyperlipidemia): Code(s): E78.5 - Hyperlipidemia, unspecified Category: Medical Qualifiers: Hyperlipidemia type: pure hypercholesterolemia Qualified Code(s): E78.00 - Pure hypercholesterolemia, unspecified Plan: LDL goal < 100. Followed by PCP, continue Simvastatin (5) PAC (premature atrial contraction): Code(s): I49.1 - Atrial premature depolarization Category: Medical Plan: Noted on EKG today Plan Plan 1. Dyspnea On Exertion The patient presents with shortness of breath on exertion, which is a newer and worsening symptom. While her echocardiogram showed a strong heart function, further evaluation is needed to rule out a cardiac etiology. An exercise nuclear stress test will be ordered to assess for adequate coronary artery blood flow. A blood test will also be ordered to check the heart failure marker to further evaluate for heart failure. If the results of these tests are normal, the shortness of breath may not be cardiac in origin. 2. Arrhythmia And Bradycardia The patient was referred for evaluation of bradycardia, and today's EKG and physical exam revealed an irregular rhythm with premature atrial contractions (PACs). To evaluate the average heart rate and quantify the burden of arrhythmia, the patient will wear a Holter monitor for a couple of days. A follow-up visit will be scheduled to review the results of all diagnostic testing. Discussion Notes I discussed with the patient and her oil scout that the EKG today shows some irregularity with early heartbeats, which I also heard on exam. To further assess this and her underlying bradycardia, I recommended she wear a heart monitor for a few days. Regarding her shortness of breath, I explained that while her recent heart ultrasound was reassuring, we need to perform an exercise nuclear stress test to ensure her coronary arteries are providing good blood flow. I will also be checking a blood test for a heart failure marker. I advised that if these tests come back normal, her shortness of breath is likely not a heart problem. I informed them that our centralized scheduling department will call her to schedule the diagnostic tests, and we will make a follow-up appointment in the clinic to review the results. Patient Instructions - You will need to wear a heart monitor for a couple of days to check your heart's rhythm. - We will schedule an exercise nuclear stress test, which involves walking on a treadmill, to check the blood flow to your heart. - You will need to have a blood sample drawn, which can be done on the same day as your testing. - Our scheduling office will call you to arrange the appointments for these tests. - Please make a follow-up appointment in the clinic to go over all your test results. Patient was informed and verbally consented to the use of an ambient scribe for clinic note documentation during this visit. Visit time spent on chart review, interview, assessment, orders, documentation. Orders: Orders Basic Metabolic Panel Today R00.1 - Bradycardia, unspecified, R06.02 - Shortness of breath NM cardiolite stress test Today R00.1 - Bradycardia, unspecified, R06.02 - Shortness of breath ECG 3 day holter monitor Today R00.1 - Bradycardia, unspecified, R06.02 - Shortness of breath NT Pro B Type Natriuretic Pept Today R00.1 - Bradycardia, unspecified, R06.02 - Shortness of breath CA stress test Today R00.1 - Bradycardia, unspecified, R06.02 - Shortness of breath Coding Level of Care Code New Pt Level 4 (42068) Add On Problem Visit Only Diagnoses Shortness of breath on exertion R06.02 Bradycardia R00.1 Hypertension, unspecified type I10 Hypertension type: unspecified Pure hypercholesterolemia E78.00 Hyperlipidemia type: pure hypercholesterolemia PAC (premature atrial contraction) I49.1 CPT Codes EKG - CPT: [id number], Complete ([id number]) Time Spent (min) 28
[2025-07-01 13:59] VITALS: BP 122/80; PULSE 67; BMI 37.4
== END 2025-07-01 14:31 | disposition home or self-care (01) ==
LOC: HO.HCS 13:39
PROVIDERS: Visit Provider Nurse Practitioner Family
DX: R06.02 Shortness of breath (principal); R00.1 Bradycardia, unspecified; I10 Essential (primary) hypertension; E78.00 Pure hypercholesterolemia, unspecified; I49.1 Atrial premature depolarization
CPT/HCPCS: 93010; 99204

== ENCOUNTER → 2025-07-01 13:38 | Outpatient (BNVA) | payer MEDICAID, SELFPAY | PROVIDERS: Visit Provider Nurse Practitioner Family | DX: I49.1 Atrial premature depolarization (principal); R00.1 Bradycardia, unspecified; R06.09 Other forms of dyspnea; I10 Essential (primary) hypertension; E78.00 Pure hypercholesterolemia, unspecified | CPT/HCPCS: 93005; 99212 ==